=== PATIENT | female | born 1995 | race Two or more races ===

== ENCOUNTER 2017-07-25 08:19 | Emergency (ER) | payer MEDICAID ==
[~2017-07-25] VITALS: Ht 154.9 cm; Wt 74.8 kg
[2017-07-25 10:15] VITALS: BP 112/74
[2017-07-25] MEDS ORDERED: traMADol HCL 50 MG TAB PO ONE (10:15)
== END 2017-07-25 11:13 | disposition home or self-care (01) ==
LOC: ER 08:19
DX: G89.29 Other chronic pain (principal); M54.5 Low back pain; M79.1 Myalgia

== ENCOUNTER 2017-12-22 22:18 | Emergency (ER) | payer MEDICAID ==
[~2017-12-22] VITALS: Ht 154.9 cm; Wt 84.4 kg
[2017-12-22 23:03] LABS: Urine Bacteria FEW /hpf (None Seen); Urine Blood Negative /uL (Negative); Urine Mucus FEW (None Seen); Urine Specific Gravity 1.023 (1.001-1.035); Urine WBC 11 /hpf (0 - 5)
[2017-12-22 23:05] LABS: Basophils # (auto) 0 uL; Basophils % (auto) 0.4 % (0.0-2.0); Eosinophils # (auto) 0.1 uL; Eosinophils % (auto) 0.6 % (0.0-7.0); Hematocrit 41.5 % (36.0-46.0); Lymphocytes # (auto) 3.2 uL; Lymphocytes % (auto) 32.2 % (10.0-50.0); Mean Corpuscular Hemoglobin 27.7 pg (28.0-32.0); Mean Corpuscular Hgb Conc. 33.7 g/dL (32.0-36.0); Mean Corpuscular Volume 82.2 fL (80.0-100.0); Monocytes # (auto) 0.7 uL; Monocytes % (auto) 6.6 % (0.0-12.0); Neutrophils # (auto) 5.9 uL; Neutrophils % (auto) 60.2 % (37.0-80.0); Nucleated Red Blood Cells % 0.1 %; Platelet Count (auto) 263 10^3/uL (140-450); Red Blood Cells 5.05 10^6/uL (4.0-5.20); Red Cell Distribution Width 13.9 % (11.8-14.3); White Blood Cell 9.9 10^3/uL (4.4-10.8)
[2017-12-22 23:22] LABS: Albumin 3.6 g/dL (3.4-5.0); BUN/Creatinine Ratio 15.1; Potassium 3.6 mmol/L (3.5-5.1)
[2017-12-22 23:24] LABS: Bilirubin, Total 0.5 mg/dL (0.2-1.0); Total Protein 8.5 g/dL (6.4-8.2)
[2017-12-22] MEDS ORDERED: cefTRIAXone 1GM/50ML D5W 50 ML IV ONE (23:30)
[2017-12-23 01:15] VITALS: BP 118/57
== END 2017-12-23 03:10 | disposition home or self-care (01) ==
LOC: ER 22:18
DX: N39.0 Urinary tract infection, site not specified (principal)
CPT/HCPCS: 36415; 74176; 80053; 81001; 84702; 85025; 87086; 96374; 99285; J0696

== ENCOUNTER 2018-04-29 00:02 | Emergency (ER) | payer MEDICAID ==
[~2018-04-29] VITALS: Ht 157.5 cm; Wt 74.8 kg
[2018-04-29 01:21] LABS: Urine Pregnacy Test Negative (Negative)
[2018-04-29 01:26] LABS: Urine Bacteria FEW /hpf (None Seen); Urine Blood Negative /uL (Negative); Urine Hyaline Cast FEW /lpf (0 - 2); Urine Mucus FEW (None Seen); Urine Specific Gravity 1.026 (1.001-1.035); Urine WBC 77 /hpf (0 - 5)
[2018-04-29 01:29] VITALS: BP 112/74
[2018-04-29 01:35] LABS: Alcohol, Urine < 3.0 mg/dL (0-5); Amphetamine Screen, Urine NEGATIVE (NEGATIVE); Barbiturate Scree,Urine NEGATIVE (NEGATIVE); Benzodiazephine Screen, Urine NEGATIVE (NEGATIVE); Cannabinoid Screen, Urine POSITIVE (NEGATIVE); Cocaine Screen, Urine NEGATIVE (NEGATIVE); Opiate Scree,Urine NEGATIVE (NEGATIVE); Phencyclidine Screen, Urine NEGATIVE (NEGATIVE)
[2018-04-29] MEDS ORDERED: cefTRIAXone SOD 1,000 MG VL IM ONE (02:00)
[2018-04-29] MEDS ORDERED: PHENAZOPYRIDINE HCL 100 MG TAB PO ONE (02:00)
== END 2018-04-29 02:57 | disposition home or self-care (01) ==
LOC: ER 00:02
DX: N39.0 Urinary tract infection, site not specified (principal)
CPT/HCPCS: 80307; 81001; 81025; 94761; 96372; 99283; J0696